=== PATIENT | male | born 1960 | race Caucasian/White ===

== ENCOUNTER → 2018-03-28 | Day surgery (SDC) | payer OTHER ==
[2018-03-26 13:23] VITALS: BMI 26.0
[~2018-03-28] VITALS: Ht 182.9 cm; Wt 86.4 kg
[~2018-03-28] MED LIST: AMT100 PO; ATROPINE SULFATE 0.1 MG/ML 5ML SYR IV PRN; EpHEDrine SULFATE INJ 50 MG/ML AMP IV PRN; FENTANYL CITRATE INJ 50 MCG/1 ML 2 ML VIAL ONE; LACTATED RINGER'S 1000ML 1,000 ML IV SCH; MIDAZOLAM HCL 1 MG/ML 2ML VIAL ONE; MULT-506 PO; ONDANSETRON INJ 2 MG/ML 2 ML VIAL IV PRN; OXYC1TAB PO
[2018-03-28 06:45] VITALS: BP 155/91; PULSE 72; TEMP 37.2; O2SAT 95; Ht 182.9 cm; Wt 86.4 kg
[2018-03-28 09:04] VITALS: BP 136/86; PULSE 68; TEMP 36.6; O2SAT 95
--- NOTE | 2018-03-28 09:27 | Anesthesiology Progress Note ---
Anesthesia Post Op Note Date & Time Mar 28, 2018 at 09:27 Vital Signs Pain Intensity: 0 Vital Signs Past 12 Hours Date Time Temp Pulse Resp B/P (MAP) Pulse Ox O2 Delivery O2 Flow Rate FiO2 03/28/18 09:04 36.6 68 18 136/86 95 Room Air 03/28/18 06:45 37.2 72 20 155/91 (112) 95 Room Air Notes Mental Status: alert / awake / arousable, participated in evaluation Nausea / Vomiting: adequately controlled Pain: adequately controlled Airway Patency, RR, SpO2: stable & adequate BP & HR: stable & adequate Hydration State: stable & adequate Anesthetic Complications: no major complications apparent
--- NOTE | 2018-03-28 09:27 | DIAGNOSTIC IMAGING REPORT ---
LUMBAR SPINE W/O CONTRAST CLINICAL HISTORY: 57 years-old Male with WITH ANESTHESIA.. Acute low back pain with radiation into the bilateral lower extremities COMPARISON: None. TECHNIQUE: Multiplanar, multi sequence MRI of the lumbar spine was performed without intravenous contrast. FINDINGS: Large [id number] casing man localizer images demonstrate no gross abnormality. There is no aortic aneurysm or adenopathy identified. Conus medullaris terminates at the L1 level. The cauda equina appear to be within normal limits. Signal within the imaged thoracic spinal cord is unremarkable. There is moderate bone marrow edema involving the left pedicle and left inferior articular facet at L5 with moderate bone marrow edema also noted involving the left S1 sacral ala and left S1 facet. Mild soft tissue edema surrounds the left facet joint. No acute fracture or subluxation identified. Moderate intervertebral disc space narrowing with circumferential disc bulge at T11-T12 without significant central canal or foraminal narrowing identified on the sagittal images alone. T12-L1: No central canal or neural foraminal stenosis. L1-L2: No central canal or neural foraminal stenosis. Mild facet arthrosis. L2-L3: Mild intervertebral disc space narrowing with small circumferential annular disc bulge and posterior spondylitic spurring. Mild to moderate facet arthrosis with trace left facet effusion and mild ligamentum flavum thickening. There is flattening of the ventral thecal sac without significant central canal or foraminal narrowing. L3-L4: Mild intervertebral disc space narrowing with posterior spondylitic spurring and small circumferential annular disc bulge. Moderate facet arthrosis with ligamentum flavum thickening. There is flattening of the ventral thecal sac without significant central canal stenosis. There is mild to moderate bilateral foraminal stenosis. L4-L5: Mild intervertebral disc space narrowing with small circumferential annular disc bulge and right paracentral annular fissure. Posterior spondylitic spurring is noted in addition to moderate facet arthrosis and ligamentum flavum thickening. Flattening of the ventral thecal sac without significant central canal stenosis. There is mild left and mild to moderate right foraminal narrowing. L5-S1: 4 mm anterolisthesis L5 on S1 with mild spondylitic spurring, small disc bulge and small central superimposed disc protrusion. Flattening of the ventral thecal sac without significant central canal narrowing. Mild right and mild to moderate left foraminal stenosis. Bone marrow edema as above with severe facet arthrosis and moderate left facet effusion. Subchondral cystic changes are noted involving the left S1 facet. IMPRESSION: 1. Severe facet arthrosis at L5-S1, most pronounced on the left with moderate bone marrow edema involving the left L5 pedicle, left L5 and S1 facets, likely reactive without fracture identified. 2. 4 mm anterolisthesis L5 on S1 is likely secondary to long-standing facet disease. 3. Multilevel discogenic degenerative changes and spondylitic spurring as above without significant central canal narrowing. Foraminal stenosis is present at several levels as detailed above, most pronounced at L3-S1. The above report was generated using voice recognition software. It may contain grammatical, syntax or spelling errors. Electronically signed by: Carson Esteban M.D. 03/28/2018 9:26 AM Dictated Date/Time: 03/28/2018 9:08 AM
[2018-03-28 09:30] VITALS: BP 159/87; PULSE 68; TEMP 36.6; O2SAT 96
== END | disposition home or self-care (01) ==
LOC: C.ACU 06:23
PROVIDERS: ATTEND Psychiatry & Neurology Neurology
DX: M47.816 Spondylosis without myelopathy or radiculopathy, lumbar region (principal); M48.061 Spinal stenosis, lumbar region without neurogenic claudication; M54.5 Low back pain; I42.9 Cardiomyopathy, unspecified; M19.90 Unspecified osteoarthritis, unspecified site; Z82.49 Family history of ischemic heart disease and other diseases of the circulatory system; Z80.0 Family history of malignant neoplasm of digestive organs; F17.200 Nicotine dependence, unspecified, uncomplicated; Z88.6 Allergy status to analgesic agent; R91.8 Other nonspecific abnormal finding of lung field